=== PATIENT | female | born 1995 | race Caucasian/White ===

== ENCOUNTER 2018-09-08 12:39 | Outpatient (CLI) | payer BC ==
--- NOTE | 2018-09-08 13:21 | RAD ---
LEFT FOOT THREE VIEWS: HISTORY: Left medial foot pain. FINDINGS: No fracture, dislocation, or bony destruction is seen. POS: [facility]
== END 2018-09-08 12:40 | disposition home or self-care (01) ==
LOC: SCSRAD 12:39
PROVIDERS: ATTEND Family Medicine
DX: M79.672 Pain in left foot (principal)